=== PATIENT | female | born 1975 | race Hispanic/Latino ===

== ENCOUNTER 2019-10-01 13:11 | Observation (INO) | payer BC, SELFPAY ==
[2019-10-01 17:33] VITALS: O2SAT 100
[2019-10-01 19:09] VITALS: BMI 27.9
[2019-10-02 12:06] VITALS: BP 129/75; TEMP 98.6
== END 2019-10-02 14:35 | disposition home or self-care (01) ==
LOC: ER 13:11 → ERHOLD 16:17 → 2ND-WC 16:52
PROVIDERS: ADMIT Specialist; ATTEND Specialist
PROC: 30233N1 Transfusion of Nonautologous Red Blood Cells into Peripheral Vein, Percutaneous Approach (ICD-10-PCS; principal; 2019-10-01)
DX: N92.0 Excessive and frequent menstruation with regular cycle (principal); D62 Acute posthemorrhagic anemia; E11.9 Type 2 diabetes mellitus without complications; I10 Essential (primary) hypertension
CPT/HCPCS: 36415; 36430; 74177; 80048; 81003; 81025; 85014; 85018; 85025; 86850; 86900; 86901; 99284; G0378; J1050; J7040; P9016; Q9967

== ENCOUNTER 2019-11-03 19:25 | Emergency (ER) | payer SELFPAY ==
--- OUTSIDE RECORDS SUMMARY | 2019-11-03 19:28 | XMS REPORT | Continuity of Care Document ---
:1975 Author Organization [facility] Care Team Providers Name Role Phone [facility] Unavailable Un available Problems Problem Status Onset Classification Date Comments Sourc e Date Reported DX: Active 08/29/[address] E04.2=NONTOXIC 17 MULTINODULAR GOITER * Medications No Data Provided for This Section Allergies, Adverse Reactions, Alerts No Known Medication Allergies Immunizations No Data Provided for This Section Results No Data Provided for This Section Pathology Reports No Data Provided for This Section Diagnostic Reports Report Value Date Source Thyroid biopsy w Thyroid biopsy w guidance US 09/07/2016 [facility] guidance CLINICAL HX: Thyroid Nodule. Multinodular goiter . TECHNIQUE: After obtaining i nformed consent and explaining the risks and benefits of the procedure to the patient, the patient was placed on the ultrasound table in a supine position. Patient is not on any blood thinners. Patient' s questions were answered. TIME OUT was performed prior to initiating the procedure, confirming patient's name, date of and type/site of procedure. Multiple nodules are visuali zed in both lobes of thyroid gland. Largest nodule in the right lobe approximately 2.4 cm in size and largest nodule in the left lobe approximately 3.1 cm in size were targeted. The overlying area was clean ed with Chloro-prep and anesthetized with 1% Lidocaine. Using ultrasound guidance, a 25 gauge needle was placed into the mass in the right lobe of the thyroid gland. 4 separate passes were made. The obtained material was placed on glass slides and additional material placed in Cytolyte solution and sent to cytology for further analysis. Following completion of the FNA of right thyroid gland, ultrasound guidance, a 25 gauge needle was placed into the mass in the left lobe of the thyroid gland. For separate passes were made. The obtained material was placed on glas s slides and additional material placed in Cytolyte solution and sent to cytology for further analysis. The patient tolerated both p rocedures well and no immediate complications were noted. IMPRESSION: Successful ultrasound-guided thyroid biopsy of the largest nodule in right lobe and left lobe of thyroid gland. No immediate complications. SL: [id number] Consultation Notes No Data Provided for This Section Discharge Summaries No Data Provided for This Section History and Physicals No Data Provided for This Section Vital Signs No Data Provided for This Section Encounters Location Location Encounter Encounter Reason Attending ADM DC Stat us Source Details Type Number For Provider Date Date Visit [facility] Outpatient [id number] Non 09/07 09/08 FRANCOISE Hodgson Physician /2016 [facility] Procedures No Data Provided for This Section Assessment and Plan No Data Provided for This Section Plan of Care No Data Provided for This Section Social History Social History Date Source No data available for this 09/08/2016 [facility] section Family History No Data Provided for This Section Advance Directives No Data Provided for This Section Functional Status No Data Provided for This Section
[2019-11-03 20:26] LABS: Absolute Lymphocytes (CBC) 1.7 K/uL (0.7-4.9); Basophils % 0.4 % (0-1.3); Hematocrit 32.4 % (36.0-45.0); Lymphocytes % 26.4 % (15.3-44.8); MPV 8.2 fL (7.6-11.3); RBC Red Blood Cell Count 3.85 M/uL (3.86-4.86)
[2019-11-03 20:43] LABS: Specific Gravity >= 1.030 (1.005-1.030); Urine Bilirubin NEGATIVE (NEG); Urine Blood 3+ (NEG); Urine Glucose 3+ (NEG); Urine Protein 3+ (NEG); Urine Specific Gravity >=1.030 (1.005-1.030); Urine Urobilinogen 0.2 mg/dL (0.2-1.0); Urine pH 6.5 (5.0-7.0)
[2019-11-03 20:45] LABS: Urine Appearance TURBID; Urine Color RED
[2019-11-03 20:46] LABS: Urine Bacteria <20 /HPF (<20); Urine Culture Reflex Order NOT NEEDED; Urine RBC TNTC /HPF (NONE SEEN)
[2019-11-03 21:11] VITALS: TEMP 97.1; O2SAT 98
[2019-11-03 21:12] VITALS: BP 139/88
[2019-11-03 21:22] LABS: Anisocytosis 1+; Blood Morphology Comment NOTED (NOT SEEN); Platelet Estimate ADEQ; Urine White Blood Cell Casts OK
--- NOTE | 2019-11-10 12:38 | EDPHYS ---
Physician Documentation [facility] Name: Medina Stone Age: 43 yrs Sex: Female : 1975 Arrival Date: 11/03/2019 Time: 19:29 Bed 4 Private MD: ED Physician Myesha Leal HPI: 11/02 20:05 This 43 yrs old Female presents to ER via Ambulatory with complaints of kb Vaginal Bleeding. 20:05 The patient presents with vaginal bleeding that is light, with clots. Onset: The kb symptoms/episode began/occurred today. Modifying factors: The symptoms are alleviated by nothing, the symptoms are aggravated by nothing. Associated signs and symptoms: Pertinent positives: cramping, vaginal bleeding, Pertinent negatives: constipation, diarrhea, dyspareunia, dysuria, fever, hematuria, nausea, urinary frequency, vaginal discharge, vomiting. Severity of symptoms: At their worst the symptoms were mild, in the emergency department the symptoms are unchanged. The patient has experienced similar episodes in the past. The patient has been recently seen by a physician:. Pt reports she has had heavy periods and last month she had to get a blood transfusion. States she had a biopsy done last week and today started cramping and having vaginal bleeding with clots. States she should be starting her normal period around this time. MAPPER: 19:58 LMP 10/01/2019 ea Historical: - Allergies: 19:59 No Known Allergies; ea - Home Meds: 19:59 iron 65mg daily [Active]; Jardiance 25 mg Oral tab 1 tab once daily [Active]; losartan ea 50 mg Oral tab 1 tab once daily [Active]; metformin 1,000 mg Oral TG24 1 tab 2 times per day [Active]; Tradjenta 5 mg Oral tab 1 tab once daily [Active]; Unknown control pill [Active]; - PMHx: 19:59 Diabetes - NIDDM; Hypertension; ea - PSHx: 19:59 Cholecystectomy; Appendectomy; Tubal ligation; ea - Immunization history:: Adult Immunizations up to date. - Social history:: Smoking status: unknown. ROS: 19:59 Constitutional: Negative for fever, chills, and weight loss, Cardiovascular: Negative kb for chest pain, palpitations, and edema, Respiratory: Negative for shortness of breath, cough, wheezing, and pleuritic chest pain, Back: Negative for injury and pain, MS/Extremity: Negative for injury and deformity, Skin: Negative for injury, rash, and discoloration, Neuro: Negative for headache, weakness, numbness, tingling, and seizure. 19:59 Abdomen/GI: Positive for abdominal cramps. 19:59 : Positive for vaginal bleeding. Exam: 19:59 Constitutional: This is a well developed, well nourished patient who is awake, alert, kb and in no acute distress. Head/Face: Normocephalic, atraumatic. Chest/axilla: Normal chest wall appearance and motion. Nontender with no deformity. No lesions are appreciated. Cardiovascular: Regular rate and rhythm with a normal S1 and S2. No gallops, murmurs, or rubs. Normal PMI, no JVD. No pulse deficits. Respiratory: Lungs have equal breath sounds bilaterally, clear to auscultation and percussion. No rales, rhonchi or wheezes noted. No increased work of breathing, no retractions or nasal flaring. Abdomen/GI: Soft, non-tender, with normal bowel sounds. No distension or tympany. No guarding or rebound. No evidence of tenderness throughout. Back: No spinal tenderness. No costovertebral tenderness. Full range of motion. Skin: Warm, dry with normal turgor. Normal color with no rashes, no lesions, and no evidence of cellulitis. MS/ Extremity: Pulses equal, no cyanosis. Neurovascular intact. Full, normal range of motion. Neuro: Awake and alert, GCS 15, oriented to person, place, time, and situation. Cranial nerves II-XII grossly intact. Motor strength 5/5 in all extremities. Sensory grossly intact. Cerebellar exam normal. Normal gait. Vital Signs: 19:52 BP 96 / 77; Pulse 97; Resp 17; Temp 97.1; Pulse Ox 98% on R/A; Weight 75.75 kg; Height ea 5 ft. 6 in. (167.64 cm); 20:35 BP 139 / 88; Pulse 88; Resp 18; Pulse Ox 98% on R/A; ea 19:52 Body Mass Index 26.95 (75.75 kg, 167.64 cm) ea MDM: 19:38 Patient medically screened. kb 20:04 Data reviewed: vital signs, nurses notes. Data interpreted: Pulse oximetry: on room air kb is 98 %. Interpretation: normal. Counseling: I had a detailed discussion with the patient and/or guardian regarding: the historical points, exam findings, and any diagnostic results supporting the discharge/admit diagnosis, lab results, the need for outpatient follow up, an OB/Gyne specialist, to return to the emergency department if symptoms worsen or persist or if there are any questions or concerns that arise at home. 11/02 19:52 Order name: CBC with Diff kb 11/02 20:21 Order name: Test, Urine; Complete Time: 20:47 EDMS 11/02 19:43 Order name: Urine Dipstick-Ancillary (obtain specimen); Complete Time: 20:16 kb 11/02 20:21 Order name: Urinalysis W/Microscopic; Complete Time: 20:47 EDMS 11/02 20:29 Order name: CBC Smear Scan EDIN Administered Medications: No medications were administered Disposition: 11/03 02:45 Co-signature as Attending Physician, Myesha Leal MD. ma2 Disposition: 11/03/19 20:48 Discharged to Home. Impression: Dysmenorrhea, unspecified. - Condition is Stable. - Discharge Instructions: Dysmenorrhea, [id number]. - Medication Reconciliation Form, Thank You Letter, Antibiotic Education, Prescription Opioid Use form. - Follow up: Emergency Department; When: As needed; Reason: Worsening of condition. Follow up: Private Physician; When: 2 - 3 days; Reason: Recheck today's complaints, Continuance of care, Re-evaluation by your physician. Signatures: Dis[facility] Lizette Francis FNP-C FNP-Ckb Antunez, Elena, RN RN ea Alzahri, Mohammad, MD MD ma2 Corrections: (The following items were deleted from the chart) 11/02 20:58 20:48 11/03/2019 20:48 Discharged to Home. Impression: Dysmenorrhea, unspecified. ea Condition is Stable. Forms are Medication Reconciliation Form, Thank You Letter, Antibiotic Education, Prescription Opioid Use. Follow up: Emergency Department; When: As needed; Reason: Worsening of condition. Follow up: Private Physician; When: 2 - 3 days; Reason: Recheck today's complaints, Continuance of care, Re-evaluation by your physician. kb
--- NOTE | 2019-11-10 12:38 | ER ---
Nurse's Notes [facility] Name: Medina Stone Age: 43 yrs Sex: Female : 1975 Arrival Date: 11/03/2019 Time: 19:29 Bed 4 Private MD: Diagnosis: Dysmenorrhea, unspecified Presentation: 11/02 19:52 Chief complaint: Patient states: Reports she was here a month ago with heavy period and ea was transfused. She was suppose to follow up with [facility], pt reports she followed up with another OB. She had a biopsy on Sun , she reports spotting Sun, Sunday and Sunday and it stopped. Pt reports today she started cramping, having heavy bleeding and passing clots. Coronavirus screen: Proceed with normal triage. Ebola Screen: No symptoms or risks identified at this time. Initial Sepsis Screen: Does the patient meet any 2 criteria? No. Patient's initial sepsis screen is negative. Does the patient have a suspected source of infection? No. Patient's initial sepsis screen is negative. Risk Assessment: Do you want to hurt yourself or someone else? Patient reports no desire to harm self or others. Onset of symptoms was November 03, 2019. 19:52 Method Of Arrival: Ambulatory ea 19:52 Acuity: SAYRA 3 ea Triage Assessment: 19:57 General: Appears in no apparent distress. Behavior is calm, cooperative, appropriate ea for age. Pain: Complains of pain in suprapubic area Quality of pain is described as crampy. Neuro: Level of Consciousness is awake, alert, obeys commands, Oriented to person, place, time, situation. Cardiovascular: Patient's skin is warm and dry. : Reports vaginal bleeding that is with clots, heavy flow. Derm: Skin is pink, warm \T\ dry. 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 - Social history:: Smoking status: unknown. Screenin:56 Abuse screen: Denies threats or abuse. Nutritional screening: No deficits noted. ea Tuberculosis screening: No symptoms or risk factors identified. Fall Risk None identified. Assessment: 20:17 General: Appears in no apparent distress. Behavior is appropriate for age. Neuro: Level ea of Consciousness is awake, alert, obeys commands, Oriented to person, place, time, situation. Respiratory: Airway is patent Respiratory effort is even, unlabored, Respiratory pattern is regular, symmetrical. Derm: Skin is pink, warm \T\ dry. 20:55 Reassessment: Patient and/or family updated on plan of care and expected duration. Pain ea level reassessed. Patient is alert, oriented x 3, equal unlabored respirations, skin warm/dry/pink. Discharge instruction given to patient, verbalized the understanding of instruction. Pt left ED ambulatory tolerating well. Vital Signs: 19:52 BP 96 / 77; Pulse 97; Resp 17; Temp 97.1; Pulse Ox 98% on R/A; Weight 75.75 kg; Height ea 5 ft. 6 in. (167.64 cm); 20:35 BP 139 / 88; Pulse 88; Resp 18; Pulse Ox 98% on R/A; ea 19:52 Body Mass Index 26.95 (75.75 kg, 167.64 cm) ea ED Course: 19:29 Patient arrived in ED. ds1 19:32 Lizette Francis FNP-C is PHCP. kb 19:32 Myesha Leal MD is Attending Physician. kb 19:45 Doreen Schwartz RN is Primary Nurse. ea 19:56 Triage completed. ea 19:56 Patient has correct armband on for positive identification. Bed in low position. Call ea light in reach. Side rails up X 1. 19:56 Arm band placed on right wrist. Patient placed in an exam room, on a stretcher, on ea pulse oximetry. 20:06 CBC with Diff Sent. rv 20:56 No provider procedures requiring assistance completed. Patient did not have IV access ea during this emergency room visit. Administered Medications: No medications were administered Outcome: 20:48 Discharge ordered by . priyanka 20:57 Discharged to home ambulatory. stephanie 20:57 Condition: stable 20:57 Discharge instructions given to patient, Instructed on discharge instructions, follow up and referral plans. Demonstrated understanding of instructions, follow-up care. 20:58 Patient left the ED. ea Signatures: Lizette Francis, MANUFACTURING WEAVER-C MANUFACTURING WEAVER-Ckb Leana Simental ds1 Doreen Schwartz, RN RN Charbel Carmen, RN RN rv
== END 2019-11-03 20:58 | disposition home or self-care (01) ==
LOC: ER 19:25
DX: N94.6 Dysmenorrhea, unspecified (principal); I10 Essential (primary) hypertension; E11.9 Type 2 diabetes mellitus without complications
CPT/HCPCS: 36415; 81001; 81025; 85025; 99283

== ENCOUNTER 2019-12-23 06:17 | Day surgery (SDC) | payer SELFPAY ==
[2019-12-17 13:33] LABS: Absolute Lymphocytes (CBC) 1.5 K/uL (0.7-4.9); Basophils % 0.8 % (0-1.3); Hematocrit 36.9 % (36.0-45.0); Lymphocytes % 25.7 % (15.3-44.8); MPV 8.1 fL (7.6-11.3); RBC Red Blood Cell Count 4.05 M/uL (3.86-4.86)
[2019-12-17 14:13] LABS: Urine Appearance CLEAR; Urine Bilirubin NEGATIVE (NEG); Urine Blood TRACE (NEG); Urine Color YELLOW; Urine Glucose 3+ (NEG); Urine Protein NEGATIVE (NEG); Urine Specific Gravity 1.025 (1.005-1.030); Urine Urobilinogen 0.2 mg/dL (0.2-1.0); Urine pH 5.5 (5.0-7.0)
[2019-12-17 14:17] LABS: Urine Microscopic Reflex ORDER UMIC
[2019-12-17 14:24] LABS: Urine Bacteria <20 /HPF (<20); Urine Culture Reflex Order NOT NEEDED; Urine Mucus 1+ /HPF (NONE SEEN)
--- OUTSIDE RECORDS SUMMARY | 2019-12-23 06:28 | XMS REPORT | Continuity of Care Document ---
:1975 Author Organization [facility] Care Team Providers Name Role Phone [facility] Unavailable Un available Problems Problem Status Onset [...] w Thyroid biopsy w guidance US 09/07/2016 [facility] guidance CLINICAL HX: Thyroid Nodule. Multinodular goiter [...] of thyroid gland. No immediate complications. SL: [id number] Consultation Notes No Data Provided for This Section Discharge Summaries No Data Provided for This Section History and Physicals No Data Provided for This Section Vital Signs No Data Provided for This Section Encounters Location Location Encounter Encounter Reason Attending ADM DC Stat us Source Details Type Number For Provider Date Date Visit [facility] Outpatient [id number] Non 09/07 09/08 FRANCOISE Hodgson Physician /2016 [facility] Procedures No Data Provided for This Section Assessment and Plan No Data Provided for This Section Plan of Care No Data Provided for This Section Social History Social History Date Source No data available for this 09/08/2016 [facility] section Family History No Data Provided for This Section Advance Directives No Data Provided for This Section Functional Status No Data Provided for This Section
--- OUTSIDE RECORDS SUMMARY | 2019-12-23 06:29 | XMS REPORT | Continuity of Care Document ---
:1975 Author Organization [facility] t Address [address] [place] [address] Care Team Providers Name Role Phone Hannah Pike Attending Clinician Unavailable Problems Condition Condition Condition Status Onset Resolution Last Treating Co mments Source Name Details Category Date Date Treatment Clinician Date DX: Diagnosis Active 2016-09-07 Mem oria E04.2=NONT 3-20 09:47:00 l OXIC DX: 00:00: Gokul MULTINODUL E04.2=NONT 00 AR GOITER OXIC * MULTINODUL AR GOITER * Active 08/28/2016 [facility] Allergies, Adverse Reactions, Alerts This patient has no known allergies or adverse reactions. Social History Social Habit Start Date Stop Date Quantity Comments Source Social History 2016-09-08 2016-09-08 [facility] 04:59:00 04:59:00 Medications This patient has no known medications. Procedures This patient has no known procedures. Encounters Start End Encounter Admission Attending Care Care Encounter Source Date/Time Date/Time Type Type Clinicians Facility Department ID 2016-09-07 2016-09-07 Outpatient ALEC Pike [facility] [id number] 09:40:00 23:59:00 Hannah Champion Results This patient has no known results.
[2019-12-23 06:45] LABS: Specific Gravity >= 1.030 (1.005-1.030)
[2019-12-23] MEDS ORDERED: SCOPOLAMINE HYDROBROMIDE PATCH TD ONE ×2 (06:49→07:05)
[2019-12-23] MEDS ORDERED: NA CHLORIDE 0.9% 1,000 ML ONE (06:49)
[2019-12-23] MEDS ORDERED: Ringers Lactate 1,000 ML IV ONE (07:10)
[2019-12-23] MEDS ORDERED: KETOROLAC 30 MG/ML INJ ONE (07:21)
[2019-12-23] MEDS ORDERED: ROCURONIUM 50 MG/5 ML VIAL IV ONE (07:21)
[2019-12-23] MEDS ORDERED: LIDOCAINE 2% MPF 5 ML VIAL ONE (07:21)
[2019-12-23] MEDS ORDERED: propofoL 200 MG/20 ML VIAL IV ONE (07:21)
[2019-12-23] MEDS ORDERED: dexAMETHasone 10 MG/ML VIAL ONE (07:21)
[2019-12-23] MEDS ORDERED: MIDAZOLAM HCL 2 MG/2 ML INJ ONE (07:22)
[2019-12-23] MEDS ORDERED: FENTANYL CITR 250 MCG/5 ML ONE (07:22)
[2019-12-23] MEDS ORDERED: ONDANSETRON 4 MG/2 ML VIAL ONE (07:22)
[2019-12-23] MEDS ORDERED: CEFAZOLIN/SWI 1gm 1 GM/10 ML SYR ONE (08:05)
[2019-12-23] MEDS: BUPIVACAINE 0.25% PF 30 ML VIAL ONE ×2 (08:25→08:44)
[2019-12-23] MEDS: NA CHLORIDE 0.9% 1,000 ML ONE ×5 (09:00→11:27)
[2019-12-23] MEDS ORDERED: VECURONIUM 10 MG/VIAL IV ONE (09:21)
[2019-12-23] MEDS ORDERED: NS 0.9% VIAL 20 ML ONE (09:21)
[2019-12-23] MEDS ORDERED: CEFAZOLIN SODIUM 1 GM/VIAL ONE (09:21)
[2019-12-23] MEDS ORDERED: GLYCOPYRROLATE 0.2 MG/ML SYR ONE (11:13)
[2019-12-23] MEDS ORDERED: NEOSTIGMINE 1 MG/ML -5 ML ONE (11:18)
[2019-12-23] MEDS: HYDROMORPHONE HCL 1 MG/ML INJ ONE ×2 (11:59→12:07)
[2019-12-23] MEDS ORDERED: HYDROCODONE/APAP 5/325 MG TAB ONE (13:05)
[2019-12-23 14:45] VITALS: BP 120/60; TEMP 97.6; O2SAT 97
--- NOTE | 2019-12-24 05:09 | OP ---
Date of Procedure: 12/23/2019 Surgeon: Yolanda Tong MD Blender Operator: Dot Ro. Preoperative Diagnoses: 1.Menorrhagia. 2.Abnormal uterine bleeding caused by leiomyoma. 3.Iron-deficiency anemia. 4.Left lower quadrant pain. 5.Left pseudo ovarian cyst. 6.Type 2 diabetes. 7.Goiter. Postoperative Diagnoses: 1.Menorrhagia. 2.Abnormal uterine bleeding caused by leiomyoma. 3.Iron-deficiency anemia. 4.Left lower quadrant pain. 5.Left pseudo ovarian cyst. 6.Type 2 diabetes. 7.Goiter. Procedures Performed: 1.Total laparoscopic hysterectomy. 2.Bilateral salpingectomy. 3.Left oophorectomy. 4.Extensive lysis of adhesions, which included omental adhesions to the anterior abdominal wall, inf raumbilical old trocar site ventral hernia most likely that was not repaired at this time as incision was supraumbilical, then bladder adhesions, all these were taken down in order for me to get started with the surgery. 5.Cystoscopy. Anesthesia: General endotracheal. Estimated Blood Loss: 100. Urine Output: 500. Complications: No complications. Findings: Uterus was enlarged. Fibroids present and had to do vaginal morcellation to remove the jona bhavana as this was not fitting through the vaginal canal. There were bladder adhesions that had to be t aken down. There were adhesions of the omentum and right ovary to the posterior broad ligament and s idewall. All these adhesions had to be taken down in order for me to get started with the surgery. Cystoscopy: Both ureteric orifices were well visualized and had good jets of urine. No evidence of any trauma to the bladder. The right ovary was left intact after lysis of all the periovarian adhesions. The tubes on both side s appeared to be scarred and the ovary on the left side appeared to be multi-cystic with scar tissue, so plan was to remove this ovary since there was pain in this area as well besides her bleeding. Description Of Procedure: After informed consent was verified, the patient was brought to the OR, pl aced in supine fashion on the operating table, general anesthesia given, placed in a dorsal lithotomy position. A 2 g of Ancef were given. SCDs were started. Abdomen, vulva, vagina, and perineum were prepped and draped in a sterile fashion. Ordaz was placed to drain the bladder and a large VCare in troduced into the uterus and fixed in place. This area was then draped. A 1 cm supraumbilical incision was made since there were other incisions for the gallbladder and the appendix below. Once the fascia was incised, the peritoneum was entered sharply. Then, I could feel that there were adhesions of the omentum all around, so I found a spot on the left side, S retractors were placed and Samuel introduced. After adequate insufflation, camera introduced and t he findings were confirmed. There were extensive adhesions of the omentum showing the left lower fransisca drant all the way from the old Pfannenstiel scar to the level of the supraumbilical incision. There were adhesions all the way into the right upper quadrant as well. So, a 5 left and right lower quadr ant ports were placed after Marcaine was injected to the skin and the fascial levels. There was a sp igelian hernia as well on each side. Then, after putting the trocars in and visualizing the omentum in the push-spread technique and using the LigaSure and some sharp dissection at times, windows were made and the entire omentum was taken down. There was no evidence of any bowel here. Then, I had to use this to takedown the bladder adhesions, which were extremely dense and fibrous. These were margi deny and the bladder was from the uterus. Once this was done, I went all the way down to th e level of the VCare cup of the anterior vaginal wall on the anterior fornix anteriorly. Then, a 10 port was placed through the suprapubic incision safely without either hitting the bladder or the uter us. Once I was in the peritoneal cavity, then the procedure was started. Both ureters were traced f rom the pelvic brim to the ureteric tunnels without any distortion. There was significant amount of scarring in the broad ligaments on the right and left, but left was greater than the right side. Aft er the rest of the adhesions were taken down from the bladder all the way down to the low segment on both sides, then I took down the adhesions of the sidewalls, then took the infundibulopelvic ligament and the tube on the left side. Then, the round ligament was taken down and broad ligament was opene d up posteriorly to the level of the uterosacral anteriorly. Dissection was performed to the bladder flap. Although there was significant scarring in the lateral aspects, care was taken to keep the ure ter lateral while performing with dissection. The vessels were skeletonized carefully making sure lindsay t there was no ureteric adhesions here, then went on opposite side. Utero-ovarian ligament was taken down. The tube was removed and handed out. Then, the round ligament was taken down and posterior b road ligament raised to the uterosacral on the posterior aspect and anteriorly it was raised to compl ete the bladder flap. The scar tissue was then taken down to expose the vessels. Medial incision wa s made to the vessels and then with the help of the bipolar, there was significant cauterization that had to be done on the wall parallel to the lateral wall of the uterus safely. Bipolar was used to ca uterize and with the help of the LigaSure, cauterized and cut. Then, the cardinal ligaments were brock en down as well. Then on the opposite side, vessels were taken down, the cardinal ligament taken melanie n, and then circumferential colpotomy with a monopolar hook blade. Specimen was attempted to pull fro m the bottom, but this was almost impossible. The left tube and ovary were attached. Once put Sheila in the anterior and Lopez from the posterior aspect of the vaginal canal, then retract ion was performed using mass clamps and the specimen was morcellated until rest of it slid out. Ther e was a fiber that had to be removed before I could do this. Once all this was done, the vagina was occluded with a sponge and then after changing my gloves, thorough irrigation and suction were perfor med. In the peritoneal cavity, excellent hemostasis was ensured. The vaginal epithelial closure was started from the right to left as the first layer using connective tissue for closure using a 2-0 V-L oc in a continuous running fashion. Then from the left side, the fascial layer connective tissue in the posterior and anterior aspects were sutured together all the way to the right again. Then, 2 claudio k sutures were taken for preventing slippage. There was excellent hemostasis. The left ovary and tu be were intact with the uterine specimen. The right tube was simply sent as a separate specimen. Th e right ovary appeared to be normal and did not need any ovariopexy . All the 4 trocars we re pulled under direct vision, injected with Marcaine at the fascial and skin sites, and closed the s uprapubic with a simple 0 Vicryl stitch and the umbilicus with a [id number] tag sutures tied tog ether. All the skin incisions were closed with the help of 4-0 Vicryl in an interrupted fashion. Then, Fole y was removed, cysto was performed, 17-Thai sheath, 30-degree lens, normal saline. Normal jets of u rine from both ureteric orifices. No evidence of any trauma to the bladder. The bladder was then dr gaspar. Ordaz left. Vagina cleaned up. Instrument and sponge counts were correct at the end of the ca se. The patient tolerated the procedure well. Plan was discharge her home. Narcotics were given. Brayan gallagher has a one week followup appointment with me in the office. ESTEFANÍA/JASS Voice ID: [id number] Report ID: [id number]
== END 2019-12-23 13:55 | disposition home or self-care (01) ==
LOC: OR 06:17
PROVIDERS: ATTEND Obstetrics & Gynecology
PROC: 0UT94ZZ Resection of Uterus, Percutaneous Endoscopic Approach (ICD-10-PCS; 2019-12-23)
PROC: 0UT14ZZ Resection of Left Ovary, Percutaneous Endoscopic Approach (ICD-10-PCS; 2019-12-23)
PROC: 0UT74ZZ Resection of Bilateral Fallopian Tubes, Percutaneous Endoscopic Approach (ICD-10-PCS; 2019-12-23)
PROC: 0TNB4ZZ Release Bladder, Percutaneous Endoscopic Approach (ICD-10-PCS; 2019-12-23)
PROC: 0DNU4ZZ Release Omentum, Percutaneous Endoscopic Approach (ICD-10-PCS; principal; 2019-12-23 07:30)
DX: N92.1 Excessive and frequent menstruation with irregular cycle (principal); D25.9 Leiomyoma of uterus, unspecified; D27.1 Benign neoplasm of left ovary; K66.0 Peritoneal adhesions (postprocedural) (postinfection); N32.89 Other specified disorders of bladder; D50.9 Iron deficiency anemia, unspecified; E11.9 Type 2 diabetes mellitus without complications; E04.9 Nontoxic goiter, unspecified; I10 Essential (primary) hypertension; Z11.59 Encounter for screening for other viral diseases; Z82.49 Family history of ischemic heart disease and other diseases of the circulatory system
CPT/HCPCS: 36415; 81003; 81015; 81025; 82947; 85025; 86850; 86900; 86901; 88307; J0690; J1100; J1170; J2250; J2405; J2704; J2710; J3010; J7030; J7120; U0002